=== PATIENT | female | born 1970 | race Caucasian/White ===

== ENCOUNTER → 2016-04-11 | Outpatient (CLI) | payer OTHER ==
--- NOTE | 2016-04-11 13:44 | MA ---
Screening Digital Mammogram with iCAD Clinical Indications: Routine screening. Technique: Standard cephalocaudal and mediolateral oblique projections were obtained. This examinat ion was processed by the iCAD computer aided detection system. Comparison: 2014, 2013, 2012, 2011 Breast density: 3; 50-75% Findings: CAD was reviewed. No suspicious findings are identified. No interval development of new suspicious calcification, mass, or architectural distortion. Impression: Benign. BI-RADS 2. Recommendation: Routine screening is recommended in one year. [facility] will send a result letter to the patient. Negative mammography should not preclude additional workup of a clinically suspicious finding. The patient's information is entered into a reminder system with a target due date for her next mammo gram.
== END ==
LOC: CIMAGING 10:33
DX: Z12.31 Encounter for screening mammogram for malignant neoplasm of breast (principal)
CPT/HCPCS: G0202